=== PATIENT | female | born 1975 | race Caucasian/White ===

== ENCOUNTER 2023-08-02 08:36 | Outpatient (CLI) | payer BC | END 2023-08-02 08:37 | disposition home or self-care (01) | LOC: CSHRAD 08:36 | PROVIDERS: ATTEND Physician Assistant Surgical | DX: Q76.2 Congenital spondylolisthesis (principal); M47.816 Spondylosis without myelopathy or radiculopathy, lumbar region | CPT/HCPCS: 72110 ==